=== PATIENT | female | born 1965 | race Two or more races ===

== ENCOUNTER → 2017-01-18 | Outpatient (REF) | payer OTHER | LOC: M LAB REF 13:25 | PROVIDERS: ATTEND Internal Medicine Medical Oncology | DX: C50.919 Malignant neoplasm of unspecified site of unspecified female breast (principal) ==

== ENCOUNTER → 2017-07-25 | Outpatient (REF) | payer BC | LOC: M LAB REF 10:18 | PROVIDERS: ATTEND Internal Medicine Medical Oncology | DX: C50.919 Malignant neoplasm of unspecified site of unspecified female breast (principal) ==

== ENCOUNTER → 2017-10-17 | Outpatient (REF) ==
--- NOTE | 2017-10-18 06:53 | REP ---
LUMBOSACRAL SPINE: CLINICAL: Pain and disability. TECHNIQUE: AP, lateral and coned down views of the lumbosacral spine. FINDINGS: Alignment and lordosis maintained without acute fracture/compression injury or subluxation. Moderate multilevel degenerative changes include end plate sclerosis, subtle early marginal spurring and minimal disc space narrowing. No acute fracture/compression injury or subluxation. IMPRESSION: Early moderate multilevel degenerative changes. Signed by Jack Elkins MD 10/22/2017 11:54 P
== END ==
LOC: M SMT 11:23
PROVIDERS: ATTEND Internal Medicine
DX: Z02.71 Encounter for disability determination (principal)

== ENCOUNTER → 2018-01-23 | Outpatient (REF) | payer BC, OTHER, SELFPAY ==
[2018-01-23 14:53] LABS: CA15-3 ANTIGEN 17.2 U/ML (<32.4)
== END ==
LOC: M LAB REF 13:42
DX: C50.919 Malignant neoplasm of unspecified site of unspecified female breast (principal)
CPT/HCPCS: 86300

== ENCOUNTER → 2018-10-09 | Outpatient (CLI) | payer OTHER | LOC: M RAD 09:02 | DX: M54.5 Low back pain (principal); Z85.3 Personal history of malignant neoplasm of breast; R10.11 Right upper quadrant pain; N64.4 Mastodynia; N64.1 Fat necrosis of breast; Z90.49 Acquired absence of other specified parts of digestive tract; M50.30 Other cervical disc degeneration, unspecified cervical region | CPT/HCPCS: 76705 ==

== ENCOUNTER → 2019-01-15 | Outpatient (REF) | payer OTHER ==
[~2019-01-15] MED LIST: ATOR1TAB19 PO; MELO15TA28 PO; METF500T13 PO; NEUR100C PO; SYNT25TA PO
[2019-01-15 17:12] LABS: FREE T4 1.18 NG/DL (0.76-1.46); TOTAL PROTEIN 7.4 GM/DL (6.4-8.2)
[2019-01-15 17:13] LABS: VITAMIN B12 LEVEL 803 PG/ML
[2019-01-15 17:23] LABS: FOLATE 10.1 NG/ML
[2019-01-15 17:24] LABS: HEMOGLOBIN A1c 6.8 %
[2019-01-17 13:31] LABS: ALBUMIN 4.08 GM/DL (3.29-5.55); ALBUMIN % 55.1 % (55.8-66.1); ALPHA-1-GLOBULIN % 4.2 % (2.9-4.9); ALPHA-1-GLOBULINS 0.31 GM/DL (0.17-0.41); BETA-1-GLOBULINS % 6.6 % (4.7-7.2); BETA-2-GLOBULINS % 6.5 % (3.2-6.5); GAMMA GLOBULIN % 16.6 % (11.1-18.8)
[2019-01-17 13:32] LABS: ALPHA-2-GLOBULINS 0.81 GM/DL (0.42-0.99); BETA-1-GLOBULINS 0.49 GM/DL (0.28-0.60); BETA-2-GLOBULINS 0.48 GM/DL (0.19-0.55); GAMMA GLOBULINS 1.23 GM/DL (0.65-1.58)
[2019-01-22 09:47] LABS: DRVV SCREEN 39.6 SEC
[2019-01-22 14:48] LABS: ANTINUCLEAR ANTIBODIES DIRECT Negative (Negative); VITAMIN B1 LEVEL WHOLE BLOOD 127.9 nmol/L (66.5-200.0); VITAMIN B6,PYRIDOXAL PHOSPHATE 10.9 ug/L (2.0-32.8); VITAMIN E(ALPHA TOCOPHEROL) 13.5 mg/L (7.0-25.1)
== END ==
LOC: M LABNEURO 11:22
PROVIDERS: ATTEND Psychiatry & Neurology Neurology
DX: R51 Headache (principal); M54.2 Cervicalgia; M54.5 Low back pain

== ENCOUNTER → 2019-03-06 | Outpatient (REF) | payer OTHER | LOC: M SFHCPLAZ 13:43 | PROVIDERS: ATTEND Internal Medicine Rheumatology | DX: R52 Pain, unspecified (principal); R76.8 Other specified abnormal immunological findings in serum ==

== ENCOUNTER → 2019-03-06 | Outpatient (CLI) | payer OTHER ==
--- NOTE | 2019-03-06 16:48 | REP ---
Bilateral hand series: Eight views: History: Whole-body pain. Findings: Four views of each hand show overall normal mineralization. Joint spaces are preserved. No erosive changes seen. Soft tissues are unremarkable. Impression: Negative radiographs of the hands. Electronically Signed by John Ramon MD 03/06/2019 04:51 P
--- NOTE | 2019-03-06 16:49 | REP ---
Bilateral foot series: Eight views. History: Whole-body pain. Findings: Four views of each foot demonstrate overall normal mineralization. Bones, joints and soft tissues are unremarkable radiographically. No erosive change is seen. Joint spaces are preserved. There is an os naviculare present bilaterally. Impression: No significant abnormality. Electronically Signed by John Ramon MD 03/06/2019 04:51 P
== END ==
LOC: M RAD 14:21
PROVIDERS: ATTEND Internal Medicine Rheumatology
DX: R52 Pain, unspecified (principal)

== ENCOUNTER → 2019-10-07 | Outpatient (REF) | payer BC ==
[2019-10-07 16:52] LABS: BASO % 0.5 % (0.0-1.0); EOS # 0.2 10^3/uL (0.0-0.5); HEMOGLOBIN 14.3 g/dl (12.0-15.5); LYMPH # 1.8 10^3/uL (1.5-5.0); LYMPH % 24.4 % (24.0-44.0); MEAN CORPUSCULAR HEMOGLOBIN 30.4 pg (27.0-33.0); MEAN CORPUSCULAR HGB CONC 32.5 g/dl (32.0-36.5); MEAN CORPUSCULAR VOLUME 93.6 fl (80.0-96.0); MONO # 0.7 10^3/uL (0.0-0.8); MONO % 9.1 % (0.0-5.0); NEUTROPHILS # 4.7 10^3/uL (1.5-8.5); NEUTROPHILS % 63.7 % (36.0-66.0); PLATELET COUNT, AUTOMATED 230 10^3/uL (150-450); WHITE BLOOD COUNT 7.4 10^3/uL (4.0-10.0)
[2019-10-07 17:13] LABS: BLOOD UREA NITROGEN 13 MG/DL (7-18); C REACTIVE PROTEIN QUANTITATIV 0.51 MG/DL (0.00-0.30); CALCIUM LEVEL 9.7 MG/DL (8.5-10.1); CARBON DIOXIDE LEVEL 29 MEQ/L (21-32); CHLORIDE LEVEL 103 MEQ/L (98-107); CREATININE FOR GFR 0.78 MG/DL (0.55-1.30); FREE T4 1.09 NG/DL (0.76-1.46); GLOMERULAR FILTRATION RATE > 60.0 (>51); GLUCOSE, FASTING 109 MG/DL (70-100); MAGNESIUM LEVEL 2.1 MG/DL (1.8-2.4); POTASSIUM SERUM 4.4 MEQ/L (3.5-5.1); SODIUM LEVEL 139 MEQ/L (136-145)
[2019-10-07 18:25] LABS: ERYTHROCYTE SEDIMENTATION RATE 25 mm/hr (0-30)
[2019-10-07 18:50] LABS: HEMOGLOBIN A1c 6.2 %
== END ==
LOC: M LAB REF 16:19
PROVIDERS: ATTEND Family Medicine
DX: E03.9 Hypothyroidism, unspecified (principal); C50.919 Malignant neoplasm of unspecified site of unspecified female breast; M79.609 Pain in unspecified limb

== ENCOUNTER → 2020-10-02 | Outpatient (CLI) | payer BC, MEDICARE ==
[2020-10-05 14:12] LABS: ANTINUCLEAR ANTIBODIES DIRECT Negative (Negative)
[2020-10-06 14:10] LABS: ALBUMIN 4.12 GM/DL (3.29-5.55); ALBUMIN % 58.8 % (55.8-66.1); ALPHA-1-GLOBULIN % 4.3 % (2.9-4.9); ALPHA-2-GLOBULINS 0.76 GM/DL (0.42-0.99); ALPHA-2-GLOBULINS % 10.8 % (7.1-11.8); BETA-1-GLOBULINS 0.44 GM/DL (0.28-0.60); BETA-1-GLOBULINS % 6.3 % (4.7-7.2); BETA-2-GLOBULINS 0.43 GM/DL (0.19-0.55); BETA-2-GLOBULINS % 6.2 % (3.2-6.5); GAMMA GLOBULIN % 13.6 % (11.1-18.8); GAMMA GLOBULINS 0.95 GM/DL (0.65-1.58)
[2020-10-07 11:21] LABS: DRVV SCREEN 45.5 SEC
[2020-10-07 11:22] LABS: PTT LUPUS TYPE ANTICOAG SCREEN 1.1 (0-1.2)
== END ==
LOC: M PLALAB 12:10
PROVIDERS: ATTEND Psychiatry & Neurology Neurology
DX: M79.7 Fibromyalgia (principal)

== ENCOUNTER → 2022-03-16 | Outpatient (REF) | payer MEDICARE ==
[2022-03-18 17:08] LABS: HEPATITIS B CORE ANTIBODY IGG Negative (Negative); HEPATITIS C QUANTITATION HCV Not Detected IU/mL (.)
== END ==
LOC: M SFHCRHEU 14:30
PROVIDERS: ATTEND Internal Medicine Rheumatology
DX: R76.8 Other specified abnormal immunological findings in serum (principal); Z79.899 Other long term (current) drug therapy

== ENCOUNTER → 2023-11-09 | Outpatient (CLI) | payer MEDICARE, OTHER, SELFPAY ==
[~2023-11-09] MED LIST changes: +BACL10TA2 PO; +CELE0.09 PO; +DULO1CAP4 PO; +LEVOTAB10 PO; +MV-M1TAB13 PO; +RIME75TA PO; +SEMA0.257 SQ; +TRAZ-186 PO; +VITA100065 PO
== END ==
LOC: M WHC 09:41
PROVIDERS: ATTEND Specialist
DX: Z12.31 Encounter for screening mammogram for malignant neoplasm of breast (principal); N63.20 Unspecified lump in the left breast, unspecified quadrant; Z85.3 Personal history of malignant neoplasm of breast; R92.8 Other abnormal and inconclusive findings on diagnostic imaging of breast
CPT/HCPCS: 76642; 77065; G0279

== ENCOUNTER → 2023-11-09 | Outpatient (CLI) | payer MEDICARE ==
[2023-11-09 11:45] VITALS: TEMP 98.2
[2023-11-09 14:10] VITALS: BP 106/58; O2SAT 100
== END ==
LOC: M WHCPRO 11:48
PROVIDERS: ATTEND Specialist
DX: N63.21 Unspecified lump in the left breast, upper outer quadrant (principal); N63.24 Unspecified lump in the left breast, lower inner quadrant; C50.411 Malignant neoplasm of upper-outer quadrant of right female breast; C50.511 Malignant neoplasm of lower-outer quadrant of right female breast

== ENCOUNTER → 2023-11-11 | Outpatient (CLI) | payer MEDICARE ==
[2023-11-11 14:17] LABS: HEPATITIS C VIRUS ABY INDEX 0.06 INDEX (<0.8); HIV 1&2 SCREEN NEGATIVE (NEGATIVE)
== END ==
LOC: M LAB 12:40
PROVIDERS: ATTEND Specialist
DX: Z20.828 Contact with and (suspected) exposure to other viral communicable diseases (principal); W46.0XXA Contact with hypodermic needle, initial encounter

== ENCOUNTER → 2025-01-17 | Outpatient (REF) | payer MEDICARE ==
[~2025-01-17] MED LIST changes: +ANAS1TAB2 PO; +AROM25TA PO; +GABA-1171 PO; +OMEP-173 PO; +PRED5TA PO; +TAMO20TA8 PO; +VENL37TA PO
[2025-01-21 14:37] LABS: HPV APTIMA Not Detected (Not Detected)
== END ==
LOC: M SFHCWAGY 13:10
PROVIDERS: ATTEND Obstetrics & Gynecology
DX: Z12.4 Encounter for screening for malignant neoplasm of cervix (principal)
CPT/HCPCS: 87624; G0123